=== PATIENT | female | born 1935 ===

== ENCOUNTER 2018-10-08 06:20 | Inpatient (IN) | payer OTHER ==
[~2018-10-08] VITALS: Ht 165.1 cm; Wt 70.3 kg
[~2018-10-08 06:20] MED LIST: ASA-EC81 MG PO; Cordarone 200 MG TAB PO; LIPITOR40 MG PO; METOPROLOL SUC100 MG; NEURONTIN300 MG; NORVASC5 MG; TOPROL XL50 M1 PO; VASOFLEX TABLET1 TAB; XARELTO20 MG
--- NOTE | 2018-10-08 06:37 | NUR ---
PACIENTE ALERTA Y ORIENTADA EN PERSONA Y DESORIENTADA EN LUGAR Y TIEMPO. FAMILIAR REFIERE TRAER A LA MAMA POR PIERNAS INFLAMADAS DESDE HACE GORDY SEMANA. PACIENTE CON PULSO ENTRE 34-55 LATIDOS POR MINUTO. SE REALIZA EKG Y SE PRESENTA A DR. ANGUIANO. SE UBICO PACIENTE EN CAMA K8 CONECTADA A MONITOR CARDIACO Y OXIMETRIA DE PULSO.
[2018-10-08] MEDS ORDERED: AMIODARONE HCL200 MG PO (06:40)
[2018-10-08] MEDS ORDERED: METOPROLOL SUCC25 MG (06:40)
[2018-10-08] MEDS ORDERED: ARICEPT5 MG (06:41)
[2018-10-08] MEDS ORDERED: LASIX20 MG (06:41)
[2018-10-08] MEDS ORDERED: ASA325 MG (06:41)
[2018-10-08] MEDS ORDERED: DIGOX125 MCG (06:42)
--- NOTE | 2018-10-08 07:39 | NUR ---
PACIENTE ALERTA Y ORIENTADA EVALUADA POR EL DR. ANGUIANO SE ORIENTA A PACIENTE SOBRE TRATAMIENTO MEDICO SE EXTRAEN MUESTRAS DE MAGED Y SE ADMISNITRAN MEDICAMENTOS EDI ORDEN MEDICA BAJO MEDIDAS ASEPTICAS. PACIENTE CONECTADA A MONITOR CARDIACO Y OXIMETRIA DE PULSO.
--- NOTE | 2018-10-08 16:17 | NUR ---
TOMADA MUESTRAS PARA CULTIVO DE MAGED EDI ORDENADOS.PENDIENTE CHANTE DE MUESTRAS DE CULTIVO DE ORINA.ORIENTADA PACIENTE Y FAMILIAR SOBRE PROCEDIMIENTO LO CUAL REFIEREN COMPRENDER.
== END 2018-10-10 16:30 | disposition home or self-care (01) | DRG 294 ==
LOC: ER 06:20 → MEDJ 19:59
PROVIDERS: ADMIT Specialist
PROC: 4A12X4Z Monitoring of Cardiac Electrical Activity, External Approach (ICD-10-PCS; principal; 2018-10-08)
PROC: C51DYZZ Planar Nuclear Medicine Imaging of Bilateral Lower Extremity Veins using Other Radionuclide (ICD-10-PCS; 2018-10-08)
PROC: B246ZZZ Ultrasonography of Right and Left Heart (ICD-10-PCS; 2018-10-09)
DX: I80.11 Phlebitis and thrombophlebitis of right femoral vein (principal); I50.31 Acute diastolic (congestive) heart failure; I48.1 Persistent atrial fibrillation; I01.1 Acute rheumatic endocarditis; J90 Pleural effusion, not elsewhere classified; Z79.01 Long term (current) use of anticoagulants; I11.0 Hypertensive heart disease with heart failure; Z66 Do not resuscitate